=== PATIENT | male | born 1935 | race Caucasian/White ===

== ENCOUNTER 2022-09-22 14:35 | Emergency (ER) | payer BC ==
[~2022-09-22] VITALS: Ht 172.7 cm; Wt 90.7 kg
--- NOTE | 2022-09-22 14:57 | NUR ---
Patient to ER bed 02 to gown for evaluation. Side rails up.
[2022-09-22 14:58] VITALS: BP_SYST 159
--- NOTE | 2022-09-22 15:00 | NUR ---
Pt brought by BLS,Alert and oriented x 4, pt presents to ER with LAC on head after unwitnessed fall in the backyard today, pt c/o R shoulder pain and mild headache, pt skin pink and warm, no other injuries noted, will cont to monitor.
--- NOTE | 2022-09-22 15:10 | NUR ---
Dr Hirsch evaluating patient at bedside
--- NOTE | 2022-09-22 15:24 | NUR ---
Pt off the unit for CT
--- NOTE | 2022-09-22 15:35 | NUR ---
Pt returned from CT on stable condition
[2022-09-22] MEDS ORDERED: LIDOCAINE 1% 10 MG/ML, 20 ML MDV ID ONE (15:45)
[2022-09-22 16:37] VITALS: BP_SYST 159
--- NOTE | 2022-09-22 16:37 | NUR ---
Patient given written and verbal discharge instructions and verbalizes understanding. ER MD discussed with patient the results and treatment provided. Patient in stable condition. ID arm band removed. IV catheter removed intact and dressing applied, no active bleeding. No Rx given. Patient educated on pain management and to follow up with PMD. Pain Scale 2/10. Opportunity for questions provided and answered. Medication side effect fact sheet provided.
== END 2022-09-22 16:37 | disposition home or self-care (01) ==
LOC: SED 14:35
DX: S01.81XA Laceration without foreign body of other part of head, initial encounter (principal); S49.91XA Unspecified injury of right shoulder and upper arm, initial encounter; I10 Essential (primary) hypertension; Z79.899 Other long term (current) drug therapy; W22.8XXA Striking against or struck by other objects, initial encounter; Y93.89 Activity, other specified; Y92.89 Other specified places as the place of occurrence of the external cause; Y99.8 Other external cause status
CPT/HCPCS: 99284; 70450; 73030; 76376; 12013; J2001

== ENCOUNTER 2023-10-29 15:27 | Inpatient (IN) | payer BC ==
[~2023-10-29] VITALS: Ht 170.2 cm; Wt 64.9 kg
[2023-10-29 15:27] VITALS: BP_SYST 124; PULSE 69; RESP 18; TEMP 97; O2SAT 97
[2023-10-29 16:19] LABS: BASOPHILS % (AUTO) 0.4 % (0.0-2.0); EOSINOPHILS % (AUTO) 0.1 % (0.0-4.0); HEMATOCRIT 42.9 % (36-54); HEMOGLOBIN 14.8 g/dL (14.0-18.0); LYMPHOCYTES % (AUTO) 10.3 % (20.5-51.5); MEAN CORPUSCULAR HEMOGLOBIN 32 pg (27-31); MEAN CORPUSCULAR HGB CONC 34 % (32-36); MEAN CORPUSCULAR VOLUME 94 fL (79.0-98.0); MONOCYTES % (AUTO) 9.9 % (1.7-9.3); NEUTROPHILS # (AUTO) 7.9 K/uL (1.8-7.7); NEUTROPHILS % (AUTO) 79.3 % (40.0-70.0); PLATELET COUNT (AUTO) 203 K/uL (130-430); RED BLOOD CELL COUNT(AUTO) 4.57 MIL/uL (4.2-6.2); RED CELL DISTRIBUTION WIDTH 13.1 % (9.0-15.0)
[2023-10-29 16:35] LABS: ALANINE AMINOTRANSFERASE 33 U/L (12-78); ALBUMIN 3.5 g/dL (3.4-4.8); ANION GAP 12 (5-15); ASPARTATE AMINOTRANSFERASE 54 U/L (10-37); CALCIUM 8.3 mg/dL (8.4-11.0); CARBON DIOXIDE 25 mmol/L (23-29); CHLORIDE 102 mmol/L (98-107); CREATININE 0.95 mg/dL (0.55-1.30); GLUCOSE 97 mg/dL (74-106); POTASSIUM 3.9 mmol/L (3.5-5.1); SODIUM SERUM 139 mmol/L (136-145); TOTAL BILIRUBIN 0.3 mg/dL (0.0-1.0); TOTAL PROTEIN, SERUM 7.5 g/dL (6.4-8.3); UREA NITROGEN, BLOOD 19 mg/dL (8-21)
[2023-10-29 16:38] LABS: BILIRUBIN,DIRECT 0.1 mg/dL (0.0-0.3)
[2023-10-29 16:55] LABS: PROTHROMBIN TIME 10.6 SECS (9.5-12.5)
[2023-10-29] MEDS ORDERED: LISI2.5T48 PO (17:53)
[2023-10-29] MEDS ORDERED: LISI-209 PO (18:03)
[2023-10-29] MEDS ORDERED: SER25 PO (18:03)
[2023-10-29] MEDS ORDERED: SIMV-341 PO (18:03)
[2023-10-29] MEDS ORDERED: ESCI5SOL2 PO (18:03)
[2023-10-29] MEDS ORDERED: TRAM50TA2 PO (18:03)
[2023-10-29] MEDS ORDERED: LORA-258 PO (18:03)
[2023-10-29] MEDS ORDERED: NACL 0.9% 1,000 ML IV ONE (18:45)
[2023-10-29] MEDS ORDERED: LORazepam 2 MG/ML VIAL IVP ONE (20:15)
[2023-10-29] MEDS ORDERED: ONDANSETRON HCL 4 MG/2 ML VIAL IVP PRN (22:30)
[2023-10-29] MEDS ORDERED: POTASSIUM CHLORIDE 20 MEQ TABLET.ER PO PRN (22:30)
[2023-10-29] MEDS ORDERED: DOCUSATE SODIUM 100 MG CAPSULE PO PRN (22:30)
[2023-10-29] MEDS ORDERED: ACETAMINOPHEN 325 MG TABLET PO PRN (22:30)
[2023-10-29] MEDS ORDERED: MUPIROCIN 2% TOPICAL OINTMENT 22 GM NS PRN (22:30)
[2023-10-29] MEDS ORDERED: LORazepam 2 MG/ML VIAL IVP PRN (22:30)
[2023-10-29] MEDS ORDERED: MAGNESIUM SULFATE 50 ML IV PRN (22:30)
[2023-10-30] VITALS (7 sets, daily range): BP systolic 124–139; PULSE 66–81; RESP 16–18; TEMP 97.2–98.4; O2SAT 96–100
[2023-10-30 06:06] LABS: ANION GAP 9 (5-15); CALCIUM 7.8 mg/dL (8.4-11.0); CARBON DIOXIDE 28 mmol/L (23-29); CHLORIDE 105 mmol/L (98-107); CREATININE 0.79 mg/dL (0.55-1.30); GLUCOSE 76 mg/dL (74-106); POTASSIUM 3.6 mmol/L (3.5-5.1); SODIUM SERUM 142 mmol/L (136-145); UREA NITROGEN, BLOOD 16 mg/dL (8-21)
[2023-10-30] MEDS ORDERED: IPRATROPIUM/ALBUTEROL SULFATE 3 ML AMPUL.NEB (DUONEB) INH PRN (08:30)
[2023-10-30] MEDS ORDERED: CITALOPRAM HYDROBROMIDE 20 MG TABLET PO ONE (10:00)
[2023-10-30] MEDS: SIMVASTATIN 10 MG TABLET PO SCH (10:09)
[2023-10-30] MEDS: QUEtiapine FUMARATE 25 MG TABLET PO SCH (10:09)
[2023-10-30] MEDS: HEPARIN SODIUM,PORCINE 5,000 UNITS/ML VIAL SUBCUT SCH ×2 (10:10→22:48)
[2023-10-31 01:07] VITALS: BP_SYST 145; PULSE 72; RESP 19; TEMP 98; O2SAT 96
[2023-10-31 05:34] LABS: BASOPHILS % (AUTO) 0.4 % (0.0-2.0); EOSINOPHILS % (AUTO) 0.1 % (0.0-4.0); HEMATOCRIT 42.9 % (36-54); HEMOGLOBIN 14.7 g/dL (14.0-18.0); LYMPHOCYTES % (AUTO) 20.3 % (20.5-51.5); MEAN CORPUSCULAR HEMOGLOBIN 32 pg (27-31); MEAN CORPUSCULAR HGB CONC 34 % (32-36); MEAN CORPUSCULAR VOLUME 93 fL (79.0-98.0); MONOCYTES # (AUTO) 0.5 K/uL (0.0-1.0); MONOCYTES % (AUTO) 9.6 % (1.7-9.3); NEUTROPHILS # (AUTO) 3.5 K/uL (1.8-7.7); NEUTROPHILS % (AUTO) 69.6 % (40.0-70.0); PLATELET COUNT (AUTO) 194 K/uL (130-430); RED BLOOD CELL COUNT(AUTO) 4.63 MIL/uL (4.2-6.2); RED CELL DISTRIBUTION WIDTH 13.1 % (9.0-15.0); WHITE BLOOD COUNT (AUTO) 5.1 K/uL (4.8-10.8)
[2023-10-31 06:00] LABS: ANION GAP 11 (5-15); CALCIUM 8.8 mg/dL (8.4-11.0); CARBON DIOXIDE 27 mmol/L (23-29); CHLORIDE 99 mmol/L (98-107); CREATININE 0.79 mg/dL (0.55-1.30); GLUCOSE 66 mg/dL (74-106); POTASSIUM 3.2 mmol/L (3.5-5.1); SODIUM SERUM 137 mmol/L (136-145); UREA NITROGEN, BLOOD 13 mg/dL (8-21)
[2023-10-31 08:00] VITALS: BP_SYST 115; PULSE 72; RESP 18; TEMP 97.7; O2SAT 99
[2023-10-31] MEDS: QUEtiapine FUMARATE 25 MG TABLET PO SCH (09:18)
[2023-10-31] MEDS: SIMVASTATIN 10 MG TABLET PO SCH (09:18)
[2023-10-31] MEDS: CITALOPRAM HYDROBROMIDE 20 MG TABLET PO SCH (09:18)
[2023-10-31] MEDS: HEPARIN SODIUM,PORCINE 5,000 UNITS/ML VIAL SUBCUT SCH ×2 (09:19→20:48)
[2023-10-31 12:00] VITALS: BP_SYST 128; PULSE 82; RESP 18; TEMP 97.9; O2SAT 99
[2023-10-31 16:54] VITALS: BP_SYST 122; PULSE 74; RESP 16; TEMP 98.1; O2SAT 95
[2023-10-31 20:00] VITALS: BP_SYST 137; PULSE 64; RESP 20; TEMP 98.7; O2SAT 93
[2023-10-31 22:55] VITALS: O2SAT 93
[2023-10-31] MEDS: ZOLPIDEM TARTRATE 5 MG TABLET PO PRN (23:03)
[2023-11-01] VITALS (7 sets, daily range): BP systolic 120–137; PULSE 64–70; RESP 16–20; TEMP 96.8–98.7; O2SAT 97–100
[2023-11-01 05:59] LABS: BASOPHILS % (AUTO) 0.3 % (0.0-2.0); EOSINOPHILS # (AUTO) 0.1 K/uL (0.0-0.4); EOSINOPHILS % (AUTO) 1.1 % (0.0-4.0); HEMATOCRIT 41.7 % (36-54); HEMOGLOBIN 14.4 g/dL (14.0-18.0); LYMPHOCYTES # (AUTO) 1.2 K/uL (1.0-5.5); LYMPHOCYTES % (AUTO) 24.8 % (20.5-51.5); MEAN CORPUSCULAR HEMOGLOBIN 32 pg (27-31); MEAN CORPUSCULAR HGB CONC 34 % (32-36); MEAN CORPUSCULAR VOLUME 92 fL (79.0-98.0); MONOCYTES # (AUTO) 0.5 K/uL (0.0-1.0); MONOCYTES % (AUTO) 10.5 % (1.7-9.3); NEUTROPHILS # (AUTO) 3.1 K/uL (1.8-7.7); NEUTROPHILS % (AUTO) 63.3 % (40.0-70.0); PLATELET COUNT (AUTO) 221 K/uL (130-430); RED BLOOD CELL COUNT(AUTO) 4.54 MIL/uL (4.2-6.2)
[2023-11-01 06:06] LABS: ANION GAP 10 (5-15); CALCIUM 9.1 mg/dL (8.4-11.0); CARBON DIOXIDE 26 mmol/L (23-29); CHLORIDE 102 mmol/L (98-107); CREATININE 0.93 mg/dL (0.55-1.30); GLUCOSE 79 mg/dL (74-106); POTASSIUM 3.7 mmol/L (3.5-5.1); SODIUM SERUM 138 mmol/L (136-145); UREA NITROGEN, BLOOD 20 mg/dL (8-21)
[2023-11-01] MEDS: QUEtiapine FUMARATE 25 MG TABLET PO SCH (09:01)
[2023-11-01] MEDS: SIMVASTATIN 10 MG TABLET PO SCH (09:01)
[2023-11-01] MEDS: CITALOPRAM HYDROBROMIDE 20 MG TABLET PO SCH (09:02)
[2023-11-01] MEDS: HEPARIN SODIUM,PORCINE 5,000 UNITS/ML VIAL SUBCUT SCH ×2 (09:08→21:34)
[2023-11-02] VITALS (9 sets, daily range): BP systolic 122–148; PULSE 62–101; RESP 16–18; TEMP 97.4–98.6; O2SAT 97–100
[2023-11-02] MEDS: ZOLPIDEM TARTRATE 5 MG TABLET PO PRN ×2 (01:07→21:00)
[2023-11-02 06:18] LABS: BASOPHILS # (AUTO) 0.1 K/uL (0.0-0.2); BASOPHILS % (AUTO) 2.3 % (0.0-2.0); EOSINOPHILS % (AUTO) 0.4 % (0.0-4.0); HEMATOCRIT 45.2 % (36-54); HEMOGLOBIN 15.4 g/dL (14.0-18.0); LYMPHOCYTES % (AUTO) 16.8 % (20.5-51.5); MEAN CORPUSCULAR HEMOGLOBIN 31 pg (27-31); MEAN CORPUSCULAR HGB CONC 34 % (32-36); MEAN CORPUSCULAR VOLUME 92 fL (79.0-98.0); MONOCYTES # (AUTO) 0.6 K/uL (0.0-1.0); MONOCYTES % (AUTO) 10.3 % (1.7-9.3); NEUTROPHILS # (AUTO) 4.1 K/uL (1.8-7.7); NEUTROPHILS % (AUTO) 70.2 % (40.0-70.0); PLATELET COUNT (AUTO) 243 K/uL (130-430); RED BLOOD CELL COUNT(AUTO) 4.91 MIL/uL (4.2-6.2); WHITE BLOOD COUNT (AUTO) 5.9 K/uL (4.8-10.8)
[2023-11-02 06:21] LABS: ANION GAP 12 (5-15); CARBON DIOXIDE 24 mmol/L (23-29); CHLORIDE 100 mmol/L (98-107); CREATININE 0.82 mg/dL (0.55-1.30); GLUCOSE 70 mg/dL (74-106); POTASSIUM 3.7 mmol/L (3.5-5.1); SODIUM SERUM 136 mmol/L (136-145); UREA NITROGEN, BLOOD 18 mg/dL (8-21)
[2023-11-02] MEDS: HEPARIN SODIUM,PORCINE 5,000 UNITS/ML VIAL SUBCUT SCH ×2 (09:30→21:00)
[2023-11-02] MEDS: QUEtiapine FUMARATE 25 MG TABLET PO SCH (09:30)
[2023-11-02] MEDS: SIMVASTATIN 10 MG TABLET PO SCH (09:31)
[2023-11-02] MEDS: CITALOPRAM HYDROBROMIDE 20 MG TABLET PO SCH (09:31)
[2023-11-03] VITALS (7 sets, daily range): BP systolic 131–154; PULSE 76–92; RESP 16–18; TEMP 97–99.1; O2SAT 96–99
[2023-11-03 06:48] LABS: ANION GAP 15 (5-15); CALCIUM 9.7 mg/dL (8.4-11.0); CARBON DIOXIDE 23 mmol/L (23-29); CHLORIDE 102 mmol/L (98-107); CREATININE 1.14 mg/dL (0.55-1.30); GLUCOSE 96 mg/dL (74-106); SODIUM SERUM 140 mmol/L (136-145); UREA NITROGEN, BLOOD 27 mg/dL (8-21)
[2023-11-03] MEDS: QUEtiapine FUMARATE 25 MG TABLET PO SCH (08:32)
[2023-11-03] MEDS: SIMVASTATIN 10 MG TABLET PO SCH (08:32)
[2023-11-03] MEDS: CITALOPRAM HYDROBROMIDE 20 MG TABLET PO SCH (08:32)
[2023-11-03] MEDS: HEPARIN SODIUM,PORCINE 5,000 UNITS/ML VIAL SUBCUT SCH ×2 (08:33→20:02)
[2023-11-03 08:53] LABS: BASOPHILS % (AUTO) 0.3 % (0.0-2.0); EOSINOPHILS # (AUTO) 0.1 K/uL (0.0-0.4); EOSINOPHILS % (AUTO) 0.9 % (0.0-4.0); HEMATOCRIT 45.6 % (36-54); HEMOGLOBIN 15.7 g/dL (14.0-18.0); LYMPHOCYTES # (AUTO) 1.3 K/uL (1.0-5.5); LYMPHOCYTES % (AUTO) 17.8 % (20.5-51.5); MEAN CORPUSCULAR HEMOGLOBIN 32 pg (27-31); MEAN CORPUSCULAR HGB CONC 34 % (32-36); MEAN CORPUSCULAR VOLUME 93 fL (79.0-98.0); MONOCYTES # (AUTO) 0.7 K/uL (0.0-1.0); MONOCYTES % (AUTO) 9.5 % (1.7-9.3); NEUTROPHILS # (AUTO) 5.3 K/uL (1.8-7.7); NEUTROPHILS % (AUTO) 71.5 % (40.0-70.0); PLATELET COUNT (AUTO) 292 K/uL (130-430); RED BLOOD CELL COUNT(AUTO) 4.92 MIL/uL (4.2-6.2); RED CELL DISTRIBUTION WIDTH 13.1 % (9.0-15.0); WHITE BLOOD COUNT (AUTO) 7.4 K/uL (4.8-10.8)
[2023-11-04] VITALS (9 sets, daily range): BP systolic 124–135; PULSE 63–74; RESP 16–18; TEMP 97.1–98.1; O2SAT 97–99
[2023-11-04] MEDS: SIMVASTATIN 10 MG TABLET PO SCH (08:05)
[2023-11-04] MEDS: CITALOPRAM HYDROBROMIDE 20 MG TABLET PO SCH (08:05)
[2023-11-04] MEDS: QUEtiapine FUMARATE 25 MG TABLET PO SCH (08:05)
[2023-11-04] MEDS: HEPARIN SODIUM,PORCINE 5,000 UNITS/ML VIAL SUBCUT SCH ×2 (08:11→21:48)
[2023-11-05] VITALS (7 sets, daily range): BP systolic 121–139; PULSE 70–86; RESP 10–20; TEMP 98–98.9; O2SAT 94–100
[2023-11-05] MEDS: QUEtiapine FUMARATE 25 MG TABLET PO SCH (08:48)
[2023-11-05] MEDS: CITALOPRAM HYDROBROMIDE 20 MG TABLET PO SCH (08:48)
[2023-11-05] MEDS: SIMVASTATIN 10 MG TABLET PO SCH (08:48)
[2023-11-05] MEDS: HEPARIN SODIUM,PORCINE 5,000 UNITS/ML VIAL SUBCUT SCH ×2 (08:49→21:15)
[2023-11-05] MEDS: ZOLPIDEM TARTRATE 5 MG TABLET PO PRN (21:19)
[2023-11-06 01:02] VITALS: BP_SYST 118; PULSE 76; RESP 20; TEMP 98; O2SAT 96
[2023-11-06 05:04] LABS: BASOPHILS % (AUTO) 0.4 % (0.0-2.0); EOSINOPHILS # (AUTO) 0.2 K/uL (0.0-0.4); EOSINOPHILS % (AUTO) 2.1 % (0.0-4.0); HEMATOCRIT 44.9 % (36-54); HEMOGLOBIN 15.3 g/dL (14.0-18.0); LYMPHOCYTES # (AUTO) 1.3 K/uL (1.0-5.5); LYMPHOCYTES % (AUTO) 17.4 % (20.5-51.5); MEAN CORPUSCULAR HEMOGLOBIN 32 pg (27-31); MEAN CORPUSCULAR HGB CONC 34 % (32-36); MEAN CORPUSCULAR VOLUME 92 fL (79.0-98.0); MONOCYTES # (AUTO) 0.9 K/uL (0.0-1.0); MONOCYTES % (AUTO) 11.7 % (1.7-9.3); NEUTROPHILS # (AUTO) 5.1 K/uL (1.8-7.7); NEUTROPHILS % (AUTO) 68.4 % (40.0-70.0); PLATELET COUNT (AUTO) 301 K/uL (130-430); RED BLOOD CELL COUNT(AUTO) 4.87 MIL/uL (4.2-6.2); RED CELL DISTRIBUTION WIDTH 12.8 % (9.0-15.0); WHITE BLOOD COUNT (AUTO) 7.5 K/uL (4.8-10.8)
[2023-11-06 05:15] LABS: ANION GAP 8 (5-15); CALCIUM 9.7 mg/dL (8.4-11.0); CARBON DIOXIDE 32 mmol/L (23-29); CHLORIDE 107 mmol/L (98-107); GLUCOSE 104 mg/dL (74-106); POTASSIUM 4.1 mmol/L (3.5-5.1); SODIUM SERUM 147 mmol/L (136-145); UREA NITROGEN, BLOOD 27 mg/dL (8-21)
[2023-11-06] MEDS ORDERED: D5W 1,000 ML IV SCH (07:45)
[2023-11-06] MEDS: SIMVASTATIN 10 MG TABLET PO SCH (09:26)
[2023-11-06] MEDS: QUEtiapine FUMARATE 25 MG TABLET PO SCH (09:26)
[2023-11-06] MEDS: CITALOPRAM HYDROBROMIDE 20 MG TABLET PO SCH (09:26)
[2023-11-06] MEDS: HEPARIN SODIUM,PORCINE 5,000 UNITS/ML VIAL SUBCUT SCH (09:28)
[2023-11-06 09:30] VITALS: BP_SYST 129; PULSE 77; RESP 16; TEMP 97.6; O2SAT 98
[2023-11-06 11:11] VITALS: BP_SYST 123; PULSE 77; RESP 18; TEMP 98.3; O2SAT 98
[2023-11-06 12:00] VITALS: O2SAT 96
[2023-11-06 17:02] VITALS: BP_SYST 123; PULSE 77; RESP 18; TEMP 98.3; O2SAT 98
[2023-11-06 18:00] VITALS: BP_SYST 123; PULSE 77; RESP 18; TEMP 98.3; O2SAT 98
== END 2023-11-06 23:54 | DRG 73 ==
LOC: SED 15:27 → STU 18:32 → SMU 10-31 13:13
PROVIDERS: ADMIT General Practice; ATTEND General Practice
DX: G90.8 Other disorders of autonomic nervous system (principal); U07.1 COVID-19; F39 Unspecified mood [affective] disorder; R47.02 Dysphasia; I10 Essential (primary) hypertension; E83.51 Hypocalcemia; F02.80 Dementia in other diseases classified elsewhere, unspecified severity, without behavioral disturbance, psychotic disturbance, mood disturbance, and anxiety; G30.0 Alzheimer's disease with early onset; E78.5 Hyperlipidemia, unspecified; Z86.73 Personal history of transient ischemic attack (TIA), and cerebral infarction without residual deficits
CPT/HCPCS: 36415; 70450-TC; 71045; 76376; 76536-TC; 80048; 80076; 82962; 83605; 83735; 84436; 84443; 84484; 85025; 85610-TC; 85730-TC; 87040; 92610-GN; 93005; 93306; 94760; 97110-GP; 97112-GP; 97530-GP; 99285; G0378; J1644; J2060